=== PATIENT | male | born 1950 | race Caucasian/White ===

== ENCOUNTER 2024-03-02 17:28 | Emergency (ER) | payer BC, OTHER ==
[~2024-03-02] VITALS: Ht 182.9 cm; Wt 68.1 kg
[2024-03-02] MEDS: MIDAZOLAM DRIP 50 mg/50mL 50 ML IV SCH (17:40)
[2024-03-02] MEDS: NALOXONE HCL 1MG/ML 2ML SYRINGE IV ONE (17:44)
[2024-03-02 17:45] VITALS: O2SAT 94
[2024-03-02] MEDS: ETOMIDATE (2MG/ML) 20ML VIAL IV ONE ×2 (17:48→18:04)
[2024-03-02 17:56] VITALS: BP 95/46; PULSE 103; RESP 24; O2SAT 97
[2024-03-02] MEDS: MIDAZOLAM DRIP 50 mg/50mL 50 ML IV ONE (18:03)
[2024-03-02] MEDS: NALOXONE HCL 1MG/ML 2ML SYRINGE ONE (18:04)
[2024-03-02 18:13] VITALS: O2SAT 97
[2024-03-02 18:15] LABS: Base Excess -9.3 mmol/L (-2.0-3.0)
[2024-03-02] MEDS: NOREPINEPHRINE 8 MG/250ML KIT 250 ML IV SCH (18:20)
[2024-03-02 18:22] LABS: Basophils # (auto) 0 10 ^3/uL (0-0.2); Basophils % (auto) 0.3 % (0.0-2.0); Eosinophils # (auto) 0 10 ^3/uL (0-0.8); Eosinophils % (auto) 0.1 % (0.0-7.0); Hematocrit 41.7 % (41.0-53.0); Hemoglobin 13.6 g/dL (13.5-17.5); Lymphocytes # (auto) 0.5 10 ^3/uL (0.4-5.4); Mean Corpuscular Hemoglobin 30.3 pg (28.0-32.0); Mean Corpuscular Hgb Conc. 32.6 g/dL (32.0-36.0); Mean Corpuscular Volume 92.7 fL (80.0-100.0); Monocytes # (auto) 0.1 10 ^3/uL (0-1.3); Monocytes % (auto) 1.1 % (0.0-12.0); Neutrophils % (auto) 93.5 % (37.0-80.0); Nucleated Red Blood Cells % 0.3 %; Platelet Count (auto) 111 10^3/uL (140-450); Red Cell Distribution Width 16.9 % (11.8-14.3); White Blood Cell 10.8 10^3/uL (4.4-10.8)
[2024-03-02 18:38] LABS: Alanine Aminotransferase 21 U/L (7-40); Albumin 3.2 g/dL (3.2-4.8); Alkaline Phosphatase 174 U/L (46-116); Anion Gap 18 (5-15); Aspartate Aminotransferase 42 U/L (13-40); BUN/Creatinine Ratio 20.2 (10.0-20.0); Blood Urea Nitrogen 58 mg/dL (9-23); Calcium 8.8 mg/dL (8.7-10.4); Carbon Dioxide 13 mmol/L (20-30); Chloride 105 mmol/L (98-107); Glucose 86 mg/dL (74-106); Potassium 4.5 mmol/L (3.5-5.1); Sodium 136 mmol/L (136-145)
[2024-03-02 18:39] LABS: Bilirubin, Total 0.6 mg/dL (0.2-1.0); Total Protein 5.7 g/dL (5.7-8.2)
[2024-03-02] MEDS: NOREPINEPHRINE 8 MG/250ML KIT 250 ML IV ONE (18:46)
[2024-03-02 18:59] LABS: Urine Bacteria None Seen /hpf (None Seen); Urine WBC None Seen /hpf (0 - 3)
[2024-03-02 19:04] VITALS: BP 95/46; PULSE 100; RESP 24; O2SAT 97
[2024-03-02] MEDS: DOPamine 1600MCG/ML D5W 250 ML IV SCH (19:05)
[2024-03-02] MEDS: DOPamine 1600MCG/ML D5W 250 ML IV ONE (19:09)
[2024-03-02 19:13] LABS: Urine Blood 3+ /uL (Negative); Urine Clarity Ex.Turbid (Clear); Urine Color Red (Yellow); Urine Protein, UAD 3+ (Negative); Urine Specific Gravity 1.013 (1.001-1.035); Urine Urobilinogen Normal (Negative); Urine pH 7.5 (5.0-9.0)
[2024-03-02 19:19] LABS: Amphetamine Screen, Urine Neg (NEGATIVE); Barbiturate Scree,Urine Neg (NEGATIVE); Benzodiazephine Screen, Urine Neg (NEGATIVE); Cannabinoid Screen, Urine Neg (NEGATIVE); Cocaine Screen, Urine Neg (NEGATIVE); Opiate Scree,Urine Neg (NEGATIVE); Phencyclidine Screen, Urine Neg (NEGATIVE)
[2024-03-02 19:49] VITALS: BP 117/40; PULSE 74; RESP 22; O2SAT 98
[2024-03-02] MEDS: cefTRIAXone 1GM/50ML D5W 50 ML IV ONE (20:09)
[2024-03-02] MEDS: SODIUM CHLORIDE 0.9% 1,000 ML IV ONE ×3 (20:11→23:05)
[2024-03-02 20:43] LABS: Lactic Acid w/Reflex 9.1 mmol/L (0.4-2.0)
[2024-03-02 21:32] VITALS: BP 106/41; PULSE 75; RESP 18; O2SAT 95
[2024-03-02] MEDS: ROCURONIUM 10MG/ML 10ML VIAL IV ONE ×2 (22:50→22:51)
[2024-03-02] MEDS ORDERED: TRANEXAMIC ACID 1,000 MG in SODIUM CHL 0.9% 100 ML IV ONE (23:00)
[2024-03-02] MEDS ORDERED: PHYTONADIONE (VIT K)10 MG/ML 1ML VIAL SUBCUT ONE (23:00)
[2024-03-02] MEDS: TRANEXAMIC ACID 10 ML ONE (23:07)
[2024-03-02 23:55] LABS: INR 3.5 (0.9-1.15); Partial Thromboplastin Time 62.9 SEC (24.5-34.5); Prothrombin Time 33.8 sec (9.3-11.8)
[2024-03-03 00:23] VITALS: BP 103/64; PULSE 129; RESP 18; O2SAT 96
[2024-03-03 01:00] VITALS: BP 108/56; PULSE 123; RESP 22; TEMP 99.3; O2SAT 99
[2024-03-03] MEDS: ALBUMIN 5% 250 ML IV ONE (01:06)
== END 2024-03-03 01:05 | disposition short-term general hospital (02) ==
LOC: ER 17:28 → EDBD 17:28 → ER 23:27
DX: I21.4 Non-ST elevation (NSTEMI) myocardial infarction (principal); R41.82 Altered mental status, unspecified; R57.0 Cardiogenic shock; N39.0 Urinary tract infection, site not specified; I50.9 Heart failure, unspecified; Z79.899 Other long term (current) drug therapy
CPT/HCPCS: 31500; 36415; 36556; 36600; 71045; 80053; 80307; 81001; 82140; 82805; 82962; 83605; 84484; 85025; 85610; 85730; 86850; 86900; 86901; 87070; 87205; 93005; 96365; 96366; 96367; 96368; 96375; 99291; 99292; J0696; J1265; J2250; J2310; P9045